=== PATIENT | female | born 1995 | race Caucasian/White ===

== ENCOUNTER 2017-07-01 18:38 | Emergency (ER) | payer BC ==
[~2017-07-01] VITALS: Ht 157.5 cm; Wt 49.0 kg
[~2017-07-01 18:38] MED LIST: INSU100I15
[2017-07-01 19:31] VITALS: Ht 157.5 cm; Wt 49.0 kg
[2017-07-01] MEDS ORDERED: SOD CHLORIDE 0.9% 2,000 ML IV STA (21:07)
[2017-07-01 21:21] VITALS: BP 138/89; PULSE 90; RESP 16
[2017-07-01 21:32] LABS: ADD UMIC NO; UR ASCORBIC ACID NEGATIVE (NEGATIVE); UR BILIRUBIN (Dip) NEGATIVE (NEGATIVE); UR BLOOD (Dip) NEGATIVE (NEGATIVE); UR CLARITY CLEAR (CLEAR); UR COLOR STRAW (YELLOW); UR GLUCOSE (Dip) 3+ mg/dL (NEGATIVE); UR KETONES (Dip) NEGATIVE (NEGATIVE); UR LEUKOCYTE ESTERASE (Dip) NEGATIVE Leu/ul (NEGATIVE); UR NITRITE (Dip) NEGATIVE (NEGATIVE); UR SPECIFIC GRAVITY (Dip) 1.021 (1.003-1.030); UR TOTAL PROTEIN (Dip) NEGATIVE (NEGATIVE); UR UROBILINOGEN (Dip) NEGATIVE (NEGATIVE)
[2017-07-01 21:34] LABS: BASOPHIL # 0.1 10^3/ul (0.0-0.1); BASOPHILS % 0.8 % (0.0-2.0); EOSINOPHILS # 0.5 10^3/ul (0.0-0.5); EOSINOPHILS % 4.2 % (0.0-7.0); HEMATOCRIT 38.1 % (37.0-47.0); HEMOGLOBIN 13.3 g/dl (12.0-16.0); LYMPHOCYTES # 2.9 10^3/ul (0.8-2.9); LYMPHOCYTES % 24.4 % (15.0-51.0); MEAN CORPUSCULAR HEMOGLOBIN 30.1 pg (29.0-33.0); MEAN CORPUSCULAR HGB CONC 34.9 g/dl (32.0-37.0); MEAN CORPUSCULAR VOLUME 86.2 fl (82.0-101.0); MEAN PLATELET VOLUME 9.3 fl (7.4-10.4); MONOCYTE # 0.8 10^3/ul (0.3-0.9); MONOCYTES % 6.9 % (0.0-11.0); NEUTROPHIL # 7.5 10^3/ul (1.6-7.5); NEUTROPHILS % 63.4 % (39.0-77.0); PLATELET COUNT 338 10^3/UL (140-415); RED BLOOD COUNT 4.42 10^6/ul (4.20-5.40); RED CELL DISTRIBUTION WIDTH 11.5 % (11.5-14.5); WHITE BLOOD COUNT 11.8 10^3/ul (4.8-10.8)
--- NOTE | 2017-07-01 21:55 | RADRPT ---
PROCEDURE: XR Chest. CLINICAL INDICATION: Shortness of breath. Hyperglycemia. TECHNIQUE: Single frontal view. COMPARISON: 09/19/2013. FINDINGS: The lungs are clear. The heart size is normal. There is no pleural effusion. There is no pneumothorax. IMPRESSION: 1. Normal chest radiograph. 2. No change from 09/19/2013. RPTAT: QQ .Santiago Cannon MD, MD Date Time Electronically viewed and signed by .Santiago Cannon MD, on 07/01/2017 21:54 .R/
[2017-07-01 22:06] LABS: CALCIUM 9.1 mg/dl (8.4-10.2); CREATININE 0.89 mg/dl (0.44-1.00); MAGNESIUM 1.8 mg/dl (1.7-2.5); PHOSPHORUS 4.4 mg/dl (2.5-4.9); POTASSIUM 4.1 mmol/L (3.5-5.1)
[2017-07-01] MEDS ORDERED: INSULIN LISPRO 100 UNIT/ML VIAL SC STA (22:12)
--- NOTE | 2017-07-01 22:31 | ERD ---
ER Documentation Chief Complaint Date/Time DATE: 07/01/17 TIME: 22:26 Chief Complaint RE=[id number] at PMD, diff seeing at [facility]; sent by PMD today HPI 21-year-old female history of insulin-dependent diabetes who presents with multiple complaints. The first is that the patient's glucose has been elevated. The patient describes that her blood sugars have been elevated over the last several days. She states compliance with medication. She does describe a mild cough and runny nose. She denies any fevers or chills dysuria urgency or frequency. She also describes some blurred vision to the right eye for at least 1 week. She denies any pain, no trauma, no fevers or chills. She has not seen an mobile paint specialist. ROS All systems reviewed and are negative except as per history of present illness. Medications Home Meds Reported Medications Insulin Glargine,Hum.rec.anlog (Lantus Solostar) 100 Units/Ml Pen, 0 Refills 07/11/13 Allergies Allergies: Coded Allergies: No Known Allergy (Unverified , 09/14/14) PMhx/Soc History of Surgery: No Anesthesia Reaction: No Hx Neurological Disorder: No Hx Respiratory Disorders: No Hx Cardiac Disorders: No Hx Psychiatric Problems: No Hx Miscellaneous Medical Probl: Yes (DM) Hx Alcohol Use: No Hx Substance Use: No Hx Tobacco Use: No Smoking Status: Never smoker FmHx Family History: diabetes Physical Exam Vitals Vital Signs Date Time Temp Pulse Resp B/P Pulse Ox O2 Delivery O2 Flow Rate FiO2 07/01/17 21:21 90 16 138/89 100 Room Air 07/01/17 19:31 98.7 103 20 159/85 97 Physical Exam General: Well developed, well nourished, no acute distress Head: Normocephalic, atraumatic. Eyes: Lids and lashes are normal without evidence of edema, pupils are equal and reactive, no proptosis, extraocular movements are intact without pain, no evidence of foreign body with lid eversion, no afferent pupillary defect, no field cuts, difficult to visualize fundus bilaterally Acuity: 20/50 to the left, unable to read on the right and 20/50 bilaterally. ENT: Dry mucous membranes Neck: Supple, no lymphadenopathy Respiratory: Lungs clear bilaterally, no distress Cardiovascular: RRR, no murmurs, rubs, or gallops Abdominal: Soft, non-tender, non-distended, no peritoneal signs : Deferred MSK: No edema, no unilateral swelling, 5/5 strength Neurologic: Alert and oriented, moving all extremities, normal speech, no focal weakness, no cerebellar signs Skin: No rash Psych: Normal mood Result Diagram: 07/01/17210007/01/172100 Results 24 hrs Laboratory Tests Test 07/01/17 20:56 07/01/17 21:00 07/01/17 21:01 Bedside Glucose 400mg/dL Urine Color STRAW Urine Clarity CLEAR Urine pH 7.0 Urine Specific [place]us 1.021 Urine Ketones NEGATIVEmg/dL Urine Nitrite NEGATIVEmg/dL Urine Bilirubin NEGATIVEmg/dL Urine Urobilinogen NEGATIVEmg/dL Urine Leukocyte Esterase NEGATIVELeu/ul Urine Hemoglobin NEGATIVEmg/dL Urine Glucose 3+mg/dL Urine Total Protein NEGATIVEmg/dl White Blood Count 11.810^3/ul Red Blood Count 4.4210^6/ul Hemoglobin 13.3g/dl Hematocrit 38.1% Mean Corpuscular Volume 86.2fl Mean Corpuscular Hemoglobin 30.1pg Mean Corpuscular Hemoglobin Concent 34.9g/dl Red Cell Distribution Width 11.5% Platelet Count 03260^3/UL Mean Platelet Volume 9.3fl Neutrophils % 63.4% Lymphocytes % 24.4% Monocytes % 6.9% Eosinophils % 4.2% Basophils % 0.8% Nucleated Red Blood Cells % 0.0/100WBC Neutrophils # 7.510^3/ul Lymphocytes # 2.910^3/ul Monocytes # 0.810^3/ul Eosinophils # 0.510^3/ul Basophils # 0.110^3/ul Nucleated Red Blood Cells # 0.010^3/ul Sodium Level 135mmol/L Potassium Level 4.1mmol/L Chloride Level 101mmol/L Carbon Dioxide Level 24mmol/L Anion Gap 14 Blood Urea Nitrogen 17mg/dl Creatinine 0.89mg/dl Glucose Level 458mg/dl Calcium Level 9.1mg/dl Phosphorus Level 4.4mg/dl Magnesium Level 1.8mg/dl Current Medications Medications (Trade) Dose Ordered Sig/Barbie Route PRN Reason Start Time Stop Time Status Last Admin Dose Admin Sodium Chloride (NS) 2,000 ml @ 1,000 mls/hr Q2H STAT IV 07/01/17 21:07 07/01/17 23:06 07/01/17 21:15 Insulin Human Lispro (Humalog) 5 unit ONCE STAT SC 07/01/17 22:12 07/01/17 22:16 DC Procedures/MDM EKG, MONITORS, & DIAGNOSTIC IMAGING: Chest x-ray: I reviewed and interpreted a 1 view of the chest Mediastinum: No enlargement Cardiac silhouette: No cardiomegaly Airspace: Clear lung agiular bilaterally without evidence of pneumothorax Bones: No evidence of fracture LAB INTERPRETATION: Hyperglycemia without evidence of diabetic ketoacidosis with normal anion gap, no ketonuria MEDICAL DECISION MAKING: The patient presents with hyperglycemia. She needs screening for diabetic ketoacidosis. Her laboratory testing does not show evidence of diabetic ketoacidosis. There is no anion gap, no ketonuria. The patient was given IV fluids and will be given subcutaneous Humalog. The patient is also describing decreased vision in the right eye for at least 1 week. On clinical exam the patient is able to see me without difficulty she is able to tell me how many fingers I am holding up and she has no field cuts. However her visual acuities are decreased. This is possibly secondary to vitreous hemorrhage secondary to her history of diabetes. The patient does not describe a curtain falling over her vision and has no absolute vision loss. Therefore this is unlikely to be secondary to retinal detachment. Given that the patient has had 1 week of symptoms that have been stable for 1 week I do believe the patient requires emergent transfer for an customer service receptionist. However , the patient absolutely needs prompt outpatient follow-up with an customer service receptionist. I will provide her with local clinics and [facility] referral information. ER COURSE: Patient was given 2 L of saline. She was given subcutaneous Humalog. She has no evidence of DKA and can be safely discharged with close outpatient follow- up. Her likely trigger for hyperglycemia is URI. It also appears that the patient's A1c is 12, therefore long-term control is poor in this patient. Close primary care follow-up is strongly recommended. I kept the patient and/or family informed of laboratory and diagnostic imaging results throughout the emergency room course. DISPOSITION PLAN: We discussed follow up with the patient's primary care doctor within 24 to 48 hours as needed. We also discussed return to the emergency room for worsening symptoms or worsening condition. Outpatient referral: Prompt ophthalmology follow-up Departure Diagnosis: Primary Impression: Hyperglycemia Additional Impressions: Vision changes Viral URI with cough Condition: Stable MARLO DENNISON MD Jul 01, 2017 22:31
[2017-07-01] MEDS ORDERED: INSU100I22 SC ×2 (23:33)
[2017-07-01] MEDS ORDERED: LANT3I SC (23:33)
== END 2017-07-01 23:24 | disposition home or self-care (01) ==
LOC: E/R 18:38
DX: E11.65 Type 2 diabetes mellitus with hyperglycemia (principal); J06.9 Acute upper respiratory infection, unspecified; R06.02 Shortness of breath; Z79.4 Long term (current) use of insulin
CPT/HCPCS: 36415; 71010; 80048; 81003; 82962; 83735; 84100; 85025; 96372; J1815; J7030; Z7502

== ENCOUNTER 2017-07-15 00:20 | Emergency (ER) | payer SELFPAY ==
[~2017-07-15] VITALS: Ht 170.2 cm; Wt 49.0 kg
[~2017-07-15 00:20] MED LIST changes: -INSU100I15; +INSU100I22 SC; +LANT3I SC
[2017-07-15 00:25] VITALS: Ht 170.2 cm; Wt 49.0 kg
== END 2017-07-15 00:43 | disposition left against medical advice (07) ==
LOC: E/R 00:20
DX: Z53.21 Procedure and treatment not carried out due to patient leaving prior to being seen by health care provider (principal)

== ENCOUNTER 2018-03-27 11:42 | Emergency (ER) | END 2018-03-27 15:07 | disposition home or self-care (01) ==

== ENCOUNTER → 2018-04-03 | Emergency (ER) | END | disposition home or self-care (01) ==

== ENCOUNTER 2018-04-09 13:07 | Inpatient (IN) | END 2018-04-12 16:54 | disposition home or self-care (01) | DRG 871 ==

== ENCOUNTER 2019-04-14 02:01 | Inpatient (IN) | payer BC ==
[~2019-04-14] VITALS: Ht 152.4 cm; Wt 45.9 kg
[~2019-04-14 02:01] MED LIST changes: -INSU100I22 SC; +Insulin Glargine SC; +LACTINEX PO; -LANT3I SC; +LEVO500T10 PO; +METR500T PO; +NOVO3I SC
[2019-04-14 02:35] VITALS: BP 126/64; PULSE 100; RESP 20
[2019-04-14 02:53] VITALS: Ht 152.4 cm; Wt 45.9 kg
[2019-04-14] MEDS ORDERED: SOD CHLORIDE 0.9% 1,000 ML IV SCH (03:14)
--- NOTE | 2019-04-14 03:20 | HP ---
Date/Time of Note Date/Time of Note DATE: 04/14/19 TIME: 03:20 Assessment/Plan VTE Prophylaxis SCD applied (from Nsg): Yes Pharmacological prophylaxis: NA/contraindicated Pharm contraindication: low risk/ambulating Assessment/Plan Hospital Course This is a 23-year-old female being admitted to the [facility] floor for: #1 pyelonephritis: My fluid hydration with normal saline, Levaquin 750 mg every 24 hours x5 days. Will need to obtain culture results from the transferring [facility]. I will order urinalysis and urine culture results here as well though patient is already on antibiotics. #2 diabetes mellitus type 1: We will resume home insulin, insulin sliding scale check hemoglobin A1c #3 DVT GI prophylaxis: SCDs, no GI prophylaxis indicated Further treatment strategy will be implemented as per the clinical course. HPI/ROS Admit Date/Time Admit Date/Time Apr 14, 2019 at 02:15 Hx of Present Illness Chief complaint: Abdominal pain x1 day This is a 23-year-old female with past medical history of diabetes mellitus who presented to [facility] with complaints of tactile fevers and abdominal pain that started approximately 10 AM on 04/13/2019. Patient reported that the pain was squeezing and was moving around her abdomen. She also reported nausea and vomiting. She did reports that she has sexual intercourse earlier in the morning and had pain after urination. Patient was noted to have a temperature of 99 F at the transferring facility. Her laboratory values were significant for white blood cell count of 25.6 potassium 3.4 creatinine 1.0 urinalysis positive for leukoesterase and nitrite. He was given ceftriaxone in the emergency department. CT findings by the telemetry radiologist showed heterogeneous enhancement of the left renal cortex with perinephric stranding and a urothelial enhancement, which can be seen with pyelonephritis. She was subsequently transferred to [facility] secondary to insurance purposes. Upon my examination of the patient at the bedside she does not report any pain. She does report improvement in her symptoms. She reports that she is only sexually active with one partner Allergies: NKDA Medications: See NOV FRANCO Const: As per HPI Eyes : No pain discharge or redness or change in visual acuity ENT: No pain, sore throat, congestion, congestion, dysphagia or discharge Respiratory: No shortness of breath, cough, sputum, wheezing, or pleuritic pain Cardiovascular: No chest pain, palpitation, PND, or edema GI : no change in appetite, abdominal pain, nausea, vomiting, diarrhea, constipation, or change in the color his stool Genitourinary: As per HPI Musculoskeletal: No joint pain, back pain, neck pain, restricted range of motion in neck or joints Skin: No rash, bruising or hives Neuro: No headache, dizziness, syncope, seizure, focal weakness Endocrine: No polyuria, polydipsia, temperature intolerance Psych: No hallucination, depression, anxiety or suicidal ideation PMH/Family/Social Past Medical History Diabetes mellitus, pyelonephritis Coded Allergies: No Known Allergy (Unverified , 04/11/18) Past Surgical History Past Surgical Hx: no surgical history Family History Significant Family History: no pertinent family hx Social History Alcohol Use: none Smoking Status: Never smoker Drug Use: none Exam/Review of Systems Vital Signs Vitals Vital Signs Date Temp Pulse Resp B/P (MAP) Pulse Ox O2 O2 Flow FiO2 Time Delivery Rate 04/14/19 98.5 100 20 126/64 99 Room Air 02:35 (84) Exam Exam General: Patient is a pleasant female currently lying in bed in no acute distre ss. HEENT: Atraumatic, normocephalic. The pupils are equal, round and reactive. Extraocular motor are intact Neck: Supple with full range of motion. No rigidity or meningismus Chest: Nontender Lungs: Clear to auscultation bilaterally no crackles rales or wheezing Heart: Normal S1-S2, Regular rhythm and rate. No murmur, S3, or S4 Abdomen: Soft , nontender, nondistended , bowel sounds are present. No guarding no rebound tenderness , No masses or organomegaly. No CVA tenderness palpation bilaterally Extremities: Normal to inspection, no edema no cyanosis Neurologic: Normal mental status, speech normal, cranial nerves II through XII a re intact, motor and sensory are intact, no focal weakness ARNAUD FOWLER Apr 14, 2019 03:20
[2019-04-14] MEDS ORDERED: BISACODYL (EC) 5 MG TAB PO PRN (03:30)
[2019-04-14] MEDS ORDERED: ACETAMINOPHEN 325 MG TAB PO PRN (03:30)
[2019-04-14] MEDS ORDERED: NACL 0.9% 3 ML SYG IV SCH (03:30)
[2019-04-14] MEDS ORDERED: ONDANSETRON 4 MG INJ IV PRN (03:30)
[2019-04-14] MEDS ORDERED: DOCUSATE SODIUM 100 MG CAP PO PRN (03:30)
[2019-04-14] MEDS: HYDROmorphONE 0.5 MG/0.5 ML SYG IV PRN ×2 (03:52→07:59)
[2019-04-14] MEDS ORDERED: DEXTROSE 50% 50 ML SYRINGE IV PRN ×2 (04:00)
[2019-04-14] MEDS ORDERED: GLUCAGON 1 MG INJ IM PRN (04:00)
[2019-04-14] MEDS ORDERED: GLUCOSE GEL 15 GRAM TUBE BUCCAL PRN (04:00)
[2019-04-14] MEDS ORDERED: GLUCOSE GEL 15 GRAM TUBE PO PRN ×2 (04:00)
[2019-04-14] MEDS: LEVOFLOXACIN 750MG/D5W (PMX) 150 ML IVPB SCH (05:08)
[2019-04-14] MEDS: HEPARIN 5,000 UNIT/1 ML VIAL SC SCH ×3 (05:10→20:51)
[2019-04-14 08:07] VITALS: BP 122/73; PULSE 91; RESP 18
[2019-04-14] MEDS: INSULIN ASPART [NOVOLOG] 3 ML PEN SC SCH ×9 (08:40→21:00)
[2019-04-14] MEDS: LACTOBACILLUS RHAMNOSUS CAP PO SCH ×2 (08:42→20:51)
--- NOTE | 2019-04-14 11:03 | PN ---
Date/Time of Note Date/Time of Note DATE: 04/14/19 TIME: 11:00 Assessment/Plan VTE Prophylaxis Risk score (from Nsg)>0 risk: 0 SCD applied (from Nsg): Yes Pharmacological prophylaxis: NA/contraindicated Pharm contraindication: low risk/ambulating Lines/Catheters IV Catheter Type (from Nrsg): Peripheral IV Assessment/Plan Assessment/Plan This is a 23-year-old woman with history of type I diabetes admitted with acute pyelonephritis. #1 pyelonephritis: My fluid hydration with normal saline, Levaquin 750 mg every 24 hours x5 days. Will need to obtain culture results from the transferring [facility]. Opioid analgesics for pain control. #2 diabetes mellitus type 1: We will resume home insulin, insulin sliding scale check hemoglobin A1c #3 DVT GI prophylaxis: SCDs, no GI prophylaxis indicated Result Diagram: 04/14/1933204/14/19332 Subjective 24 Hr Interval Summary Free Text/Dictation No acute overnight events. Still in considerable pain. Dry cough and deep inspiration causes L flank pain. Sister at bedside translating for [place]. Exam/Review of Systems Exam Vitals Vital Signs Date Temp Pulse Resp B/P (MAP) Pulse Ox O2 O2 Flow FiO2 Time Delivery Rate 04/14/19 98.2 91 18 122/73 98 Room Air 08:07 (89) Intake and Output 04/13/19 04/13/19 04/14/19 1515:00 23:00 07:00 IntakeIntake Total 350 ml BalanceBalance 350 ml Exam General: Patient is a young woman currently lying in bed in no acute distress. HEENT: Atraumatic, normocephalic. The pupils are equal, round and reactive. Extraocular motor are intact Neck: Supple with full range of motion. No rigidity or meningismus Chest: Nontender Lungs: Clear to auscultation bilaterally no crackles rales or wheezing Heart: Normal S1-S2, Regular rhythm and rate. No murmur, S3, or S4 Abdomen: L>R CVA tenderness to palpation. Diffuse abdominal tenderness, most in the upper quadrants. Normoactive bowel sounds. Soft, nondistended. Extremities: Normal to inspection, no edema no cyanosis Results Results 24hrs Laboratory Tests Test 04/14/19 03:33 04/14/19 08:36 White Blood Count 19.3 #H Red Blood Count 4.49 Hemoglobin 12.8 Hematocrit 38.4 Mean Corpuscular Volume 85.5 Mean Corpuscular Hemoglobin 28.5 L Mean Corpuscular Hemoglobin Concent 33.3 Red Cell Distribution Width 12.0 Platelet Count 327 Mean Platelet Volume 9.1 Immature Granulocytes % 0.600 H Neutrophils % 83.7 H Lymphocytes % 7.9 L Monocytes % 7.3 Eosinophils % 0.1 Basophils % 0.4 Nucleated Red Blood Cells % 0.0 Immature Granulocytes # 0.110 H Neutrophils # 16.1 H Lymphocytes # 1.5 Monocytes # 1.4 H Eosinophils # 0.0 Basophils # 0.1 Nucleated Red Blood Cells # 0.0 Sodium Level 140 Potassium Level 4.1 Chloride Level 107 Carbon Dioxide Level 22 Anion Gap 11 Blood Urea Nitrogen 10 Creatinine 0.95 Est Glomerular Filtrat Rate mL/min > 60 Glucose Level 315 H Hemoglobin A1c 9.7 H Calcium Level 8.9 Magnesium Level 1.6 L Total Bilirubin 0.7 Direct Bilirubin 0.00 Indirect Bilirubin 0.7 Aspartate Amino Transf (AST/SGOT) 16 Alanine Aminotransferase (ALT/SGPT) 17 Alkaline Phosphatase 95 Total Protein 7.0 Albumin 3.9 Globulin 3.10 Albumin/Globulin Ratio 1.25 Triglycerides Level 48 Cholesterol Level 142 LDL Cholesterol, Calculated 74 HDL Cholesterol 58 Cholesterol/HDL Ratio 2.4 Thyroid Stimulating Hormone (TSH) 0.699 Bedside Glucose 376 H Medications Medication Current Medications IV Flush (NS 3 ml) 3 ml PER PROTOCOL IV Last administered on 04/14/19at 03:47; Admin Dose 3 ML; Start 04/14/19 at 03:30 Ondansetron HCl (Zofran Inj) 4 mg Q6H PRN IV NAUSEA/VOMITING Last administered on 04/14/19at 03:49; Admin Dose 4 MG; Start 04/14/19 at 03:30 Acetaminophen (Tylenol Tab) 650 mg Q6H PRN PO .PAIN 1-3 OR TEMP; Start 04/14/19 at 03:30 Docusate Sodium (Colace) 100 mg Q12H PRN PO .CONSTIPATION; Start 04/14/19 at 03:30 Bisacodyl (Dulcolax) 5 mg DAILY PRN PO .CONSTIPATION; Start 04/14/19 at 03:30 Heparin Sodium (Porcine) (Heparin (5000 Units/1ml)) 5,000 unit Q8 SC Last administered on 04/14/19at 05:10; Admin Dose 5,000 UNIT; Start 04/14/19 at 06:00 Insulin Aspart (Novolog Insulin Pen) 7 unit WITH MEALS SC Last administered on 04/14/19at 08:40; Admin Dose 7 UNIT; Start 04/14/19 at 07:50 Lactobacillus Acidophilus/ Rhamnosus (Culturelle) 1 cap BID PO Last administe red on 04/14/19at 08:42; Admin Dose 1 CAP; Start 04/14/19 at 09:00 Diagnostic Test (Pha) (Accu-Chek) 1 ea 02 XX ; Start 04/15/19 at 02:00 Insulin Aspart (Novolog Insulin Pen) NOVOLOG *MILD* ALGORITHM WITH MEALS BEDTIME SC Last administered on 04/14/19at 08:41; Admin Dose 7 UNIT; Start 04/14/19 at 07:50 Levofloxacin/ Dextrose 150 ml @ 100 mls/hr Q24H IVPB Last administered on 04/14/19at 05:08; Admin Dose 100 MLS/HR; Start 04/14/19 at 03:30 Insulin Glargine (Lantus) 15 units DAILY@2000 SC ; Start 04/14/19 at 20:00 Miscellaneous Information 1 ea NOTE XX ; Start 04/14/19 at 04:00 Glucose (Glutose) 15 gm Q15M PRN PO DECREASED GLUCOSE; Start 04/14/19 at 04:00 Glucose (Glutose) 22.5 gm Q15M PRN PO DECREASED GLUCOSE; Start 04/14/19 at 04:00 Dextrose (D50w Syringe) 25 ml Q15M PRN IV DECREASED GLUCOSE; Start 04/14/19 at 04:00 Dextrose (D50w Syringe) 50 ml Q15M PRN IV DECREASED GLUCOSE; Start 04/14/19 at 04:00 Glucagon (Glucagen) 1 mg Q15M PRN IM DECREASED GLUCOSE; Start 04/14/19 at 04:00 Glucose (Glutose) 15 gm Q15M PRN BUCCAL DECREASED GLUCOSE; Start 04/14/19 at 04:00 Acetaminophen/ Hydrocodone Bitart ([place] (5/325)) 1 tab Q4H PRN PO MODERATE PAIN LEVEL 4-6; Start 04/14/19 at 11:00; Status UNV Hydromorphone HCl (Dilaudid) 1 mg Q3H PRN IV BREAKTHROUGH PAIN; Start 04/14/19 at 11:00; Status UNV PATRICIA SHERWOOD MD Apr 14, 2019 11:03
[2019-04-14] MEDS: HYDROCODONE/APAP (5/325) TAB PO PRN ×2 (11:14→18:52)
[2019-04-14 14:00] VITALS: BP 120/73; PULSE 88; RESP 18
[2019-04-14] MEDS: HYDROmorphONE 1 MG/ML SYG IV PRN (14:37)
[2019-04-14 19:55] VITALS: BP 135/82; PULSE 109; RESP 18
[2019-04-14] MEDS ORDERED: INSULIN GLARGINE 15 UNIT SC SCH (20:00)
[2019-04-14] MEDS ORDERED: INSULIN GLARGINE [LANTus] (100 UNITS/ML) SYG SC SCH (20:00)
[2019-04-15] MEDS: ACCU-CHEK XX SCH (02:00)
[2019-04-15 02:23] VITALS: BP 118/62; PULSE 98; RESP 18
[2019-04-15] MEDS: LEVOFLOXACIN 750MG/D5W (PMX) 150 ML IVPB SCH (03:15)
[2019-04-15] MEDS ORDERED: INSULIN ASPART [NOVOLOG] 3 ML PEN SC ONE ×2 (04:00→07:00)
[2019-04-15] MEDS ORDERED: ACCU-CHEK XX ONE ×2 (04:00→07:00)
[2019-04-15] MEDS: HYDROmorphONE 1 MG/ML SYG IV PRN ×2 (04:13→11:30)
[2019-04-15] MEDS: ONDANSETRON 4 MG INJ IV PRN ×2 (04:13→10:03)
[2019-04-15] MEDS: HEPARIN 5,000 UNIT/1 ML VIAL SC SCH ×3 (06:27→22:56)
[2019-04-15 07:26] VITALS: BP 112/75; PULSE 91; RESP 18
[2019-04-15] MEDS: INSULIN ASPART [NOVOLOG] 3 ML PEN SC SCH ×7 (09:46→20:58)
[2019-04-15] MEDS: LACTOBACILLUS RHAMNOSUS CAP PO SCH ×2 (09:49→20:50)
[2019-04-15] MEDS ORDERED: INSULIN GLARGINE [LANTus] (100 UNITS/ML) SYG SC SCH (10:00)
--- NOTE | 2019-04-15 10:05 | PN ---
Date/Time of Note Date/Time of Note DATE: 04/15/19 TIME: 10:01 Assessment/Plan VTE Prophylaxis Risk score (from Nsg)>0 risk: 0 SCD applied (from Nsg): Yes Pharmacological prophylaxis: NA/contraindicated Pharm contraindication: low risk/ambulating Lines/Catheters IV Catheter Type (from Nrsg): Peripheral IV Urinary Cath still in place: No Assessment/Plan Assessment/Plan This is a 23-year-old woman with history of type I diabetes admitted with acute pyelonephritis. #1 pyelonephritis: - fluid hydration with normal saline, - Levaquin 750 mg every 24 hours. - Opioid analgesics for pain control. - Urine culture growing E Coli, sensitivity pending. Blood cultures NGTD. Micro lab at [facility] [phone] - Will add on ceftriaxone. Possible partial resistance to levofloxacin. #2 diabetes mellitus type 1: - Persistently hyperglycemic. - Titrating up long-acting and short-acting insulin. #3 DVT GI prophylaxis: SCDs, no GI prophylaxis indicated Result Diagram: 04/15/19 0402 04/15/19 0402 Subjective 24 Hr Interval Summary Free Text/Dictation Overnight, patient having nausea and vomiting. Pain is not significantly improved. Exam/Review of Systems Exam Vitals Vital Signs Date Temp Pulse Resp B/P (MAP) Pulse Ox O2 O2 Flow FiO2 Time Delivery Rate 04/15/19 98.8 91 18 112/75 99 Room Air 07:26 (87) Intake and Output 04/14/19 04/14/19 04/15/19 1515:00 23:00 07:00 IntakeIntake Total 800 ml 200 ml 150 ml BalanceBalance 800 ml 200 ml 150 ml Exam General: Patient is a young woman currently lying in bed in no acute distress. HEENT: Atraumatic, normocephalic. The pupils are equal, round and reactive. Extraocular motor are intact Neck: Supple with full range of motion. No rigidity or meningismus Chest: Nontender Lungs: Clear to auscultation bilaterally no crackles rales or wheezing Heart: Normal S1-S2, Regular rhythm and rate. No murmur, S3, or S4 Abdomen: L>R CVA tenderness to palpation. Diffuse abdominal tenderness, most in the upper quadrants. Normoactive bowel sounds. Soft, nondistended. Extremities: Normal to inspection, no edema no cyanosis Results Results 24hrs Laboratory Tests Test 04/14/19 11:10 04/14/19 12:45 04/14/19 17:22 04/14/19 20:47 Urine Color STRAW Urine Clarity SLIGHTLY CLOUDY A Urine pH 7.0 Urine Specific 1.011 Kathleen Urine Ketones 1+ H Urine Nitrite NEGATIVE Urine Bilirubin NEGATIVE Urine NEGATIVE Urobilinogen Urine Leukocyte 1+ H Esterase Urine Microscopic 1 RBC Urine Microscopic 36 H WBC Urine Squamous FEW Epithelial Cells Urine Hemoglobin 1+ H Urine Glucose 3+ H Urine Total NEGATIVE Protein Bedside Glucose 239 H 387 H 161 Test 04/15/19 03:37 04/15/19 04:02 04/15/19 04:11 04/15/19 04:50 Bedside Glucose 404 *H 410 *H 399 H White Blood Count 16.7 H Red Blood Count 4.34 Hemoglobin 12.4 Hematocrit 37.4 Mean Corpuscular 86.2 Volume Mean Corpuscular 28.6 L Hemoglobin Mean Corpuscular 33.2 Hemoglobin Concen t Red Cell 11.8 Distribution Width Platelet Count 336 Mean Platelet 8.8 Volume Immature 0.700 H Granulocytes % Neutrophils % 79.1 H Lymphocytes % 13.3 L Monocytes % 5.7 Eosinophils % 0.7 Basophils % 0.5 Nucleated Red 0.0 Blood Cells % Immature 0.110 H Granulocytes # Neutrophils # 13.2 H Lymphocytes # 2.2 Monocytes # 1.0 H Eosinophils # 0.1 Basophils # 0.1 Nucleated Red 0.0 Blood Cells # Sodium Level 136 Potassium Level 4.6 Chloride Level 102 Carbon Dioxide 16 L Level Anion Gap 18 #H Blood Urea 16 Nitrogen Creatinine 1.11 H Est Glomerular > 60 Filtrat Rate mL/min Glucose Level 475 #*H Calcium Level 9.5 Magnesium Level 1.8 Total Bilirubin 0.5 Direct Bilirubin 0.00 Indirect 0.5 Bilirubin Aspartate Amino 14 L Transf (AST/SGOT) Alanine 11 L Aminotransferase (ALT/SGPT) Alkaline 109 Phosphatase Total Protein 7.1 Albumin 3.9 Globulin 3.20 Albumin/Globulin 1.21 Ratio Test 04/15/19 06:21 04/15/19 07:24 04/15/19 09:40 Bedside Glucose 313 H 312 H 206 Medications Medication Current Medications IV Flush (NS 3 ml) 3 ml PER PROTOCOL IV Last administered on 04/14/19at 03:47; Admin Dose 3 ML; Start 04/14/19 at 03:30 Acetaminophen (Tylenol Tab) 650 mg Q6H PRN PO .PAIN 1-3 OR TEMP; Start 04/14/19 at 03:30 Docusate Sodium (Colace) 100 mg Q12H PRN PO .CONSTIPATION; Start 04/14/19 at 03:30 Bisacodyl (Dulcolax) 5 mg DAILY PRN PO .CONSTIPATION; Start 04/14/19 at 03:30 Heparin Sodium (Porcine) (Heparin (5000 Units/1ml)) 5,000 unit Q8 SC Last adm inistered on 04/15/19at 06:27; Admin Dose 5,000 UNIT; Start 04/14/19 at 06:00 Lactobacillus Acidophilus/ Rhamnosus (Culturelle) 1 cap BID PO Last administered on 04/15/19at 09:49; Admin Dose 1 CAP; Start 04/14/19 at 09:00 Diagnostic Test (Pha) (Accu-Chek) 1 ea 02 XX ; Start 04/15/19 at 02:00 Levofloxacin/ Dextrose 150 ml @ 100 mls/hr Q24H IVPB Last administered on 04/15/19at 03:15; Admin Dose 100 MLS/HR; Start 04/14/19 at 03:30 Miscellaneous Information 1 ea NOTE XX ; Start 04/14/19 at 04:00 Glucose (Glutose) 15 gm Q15M PRN PO DECREASED GLUCOSE; Start 04/14/19 at 04:00 Glucose (Glutose) 22.5 gm Q15M PRN PO DECREASED GLUCOSE; Start 04/14/19 at 04:00 Dextrose (D50w Syringe) 25 ml Q15M PRN IV DECREASED GLUCOSE; Start 04/14/19 at 04:00 Dextrose (D50w Syringe) 50 ml Q15M PRN IV DECREASED GLUCOSE; Start 04/14/19 at 04:00 Glucagon (Glucagen) 1 mg Q15M PRN IM DECREASED GLUCOSE; Start 04/14/19 at 04:00 Glucose (Glutose) 15 gm Q15M PRN BUCCAL DECREASED GLUCOSE; Start 04/14/19 at 04:00 Acetaminophen/ Hydrocodone Bitart ([place] (5/325)) 1 tab Q4H PRN PO MODERATE PAIN LEVEL 4-6 Last administered on 04/14/19at 18:52; Admin Dose 1 TAB; Start 04/14/19 at 11:00 Hydromorphone HCl (Dilaudid) 1 mg Q3H PRN IV BREAKTHROUGH PAIN Last administered on 04/15/19 04:13; Admin Dose 1 MG; Start 04/14/19 at 11:00 Insulin Aspart (Novolog Insulin Pen) NOVOLOG *MODERATE* ALGORITHM WITH MEALS BEDTIME SC Last administered on 04/15/19 09:46; Admin Dose 4 UNIT; Start 04/14/19 at 17:55 Insulin Aspart (Novolog Insulin Pen) 10 unit WITH MEALS SC Last administered on 04/15/19 09:47; Admin Dose 5 UNIT; Start 04/14/19 at 17:55 Ondansetron HCl (Zofran Inj) 4 mg Q4H PRN IV NAUSEA AND/OR VOMITING Last ad ministered on 04/15/19at 04:13; Admin Dose 4 MG; Start 04/15/19 at 04:30 Insulin Glargine (Lantus) 15 units BID SC ; Start 04/15/19 at 10:00 PATRICIA SHERWOOD MD Apr 15, 2019 10:05
[2019-04-15] MEDS: SOD CHLORIDE 0.9% 1,000 ML IV SCH ×2 (11:11→16:54)
[2019-04-15] MEDS: CEFTRIAXONE 1 GM/50 ML (PMX) 50 ML IVPB SCH (11:11)
[2019-04-15 16:13] VITALS: BP 119/83; PULSE 92; RESP 14
[2019-04-15] MEDS: HYDROCODONE/APAP (5/325) TAB PO PRN (16:54)
[2019-04-15] MEDS ORDERED: KETOROLAC 30 MG INJ IV STA (18:56)
[2019-04-15 19:40] VITALS: BP 130/82; PULSE 95; RESP 20
[2019-04-16] MEDS: ACCU-CHEK XX SCH (02:00)
[2019-04-16 02:25] VITALS: BP 106/71; PULSE 71; RESP 18
[2019-04-16] MEDS: LEVOFLOXACIN 750MG/D5W (PMX) 150 ML IVPB SCH (03:29)
[2019-04-16] MEDS: SOD CHLORIDE 0.9% 1,000 ML IV SCH ×2 (03:30→17:40)
[2019-04-16] MEDS: HEPARIN 5,000 UNIT/1 ML VIAL SC SCH ×3 (06:03→20:34)
[2019-04-16 07:44] VITALS: BP 127/75; PULSE 74; RESP 18
[2019-04-16] MEDS: INSULIN ASPART [NOVOLOG] 3 ML PEN SC SCH ×7 (08:40→21:00)
[2019-04-16] MEDS: LACTOBACILLUS RHAMNOSUS CAP PO SCH ×2 (08:42→20:32)
[2019-04-16] MEDS: CEFTRIAXONE 1 GM/50 ML (PMX) 50 ML IVPB SCH (09:40)
[2019-04-16] MEDS: INSULIN GLARGINE [LANTus] (100 UNITS/ML) SYG SC SCH ×2 (09:40→21:00)
--- NOTE | 2019-04-16 10:24 | PN ---
Date/Time of Note Date/Time of Note DATE: 04/16/19 TIME: 10:22 Assessment/Plan VTE Prophylaxis Risk score (from Nsg)>0 risk: 1 SCD applied (from Nsg): Yes Pharmacological prophylaxis: NA/contraindicated Pharm contraindication: low risk/ambulating Lines/Catheters IV Catheter Type (from Nrsg): Peripheral IV Urinary Cath still in place: No Assessment/Plan Assessment/Plan This is a 23-year-old woman with history of type I diabetes admitted with acute pyelonephritis. #1 pyelonephritis: - fluid hydration with normal saline, - Levaquin 750 mg every 24 hours. - Opioid analgesics for pain control. - Urine culture growing E Coli, sensitive to nitrofurantoin, ciprofloxacin, Bactrim. Blood cultures NGTD. Micro lab at [place] is [phone] - Plan for discharge to finish a course of levofloxacin. #2 diabetes mellitus type 1: - Titrating up long-acting and short-acting insulin. #3 DVT GI prophylaxis: SCDs, no GI prophylaxis indicated Result Diagram: 04/16/19 04304/16/19 043 Subjective 24 Hr Interval Summary Free Text/Dictation No acute overnight events. Nausea and vomiting have resolved. Still mild LUQ abdominal pain. Patient ambulating out in hallway. Mild dizziness when standing. Offered discharge today, patient is still apprehensive and would prefer to stay one more day. Exam/Review of Systems Exam Vitals Vital Signs Date Temp Pulse Resp B/P (MAP) Pulse Ox O2 O2 Flow FiO2 Time Delivery Rate 04/16/19 97.9 74 18 127/75 97 Room Air 07:44 (92) Intake and Output 04/15/19 04/15/19 04/16/19 1515:00 23:00 07:00 IntakeIntake Total 50 ml 2100 ml 1300 ml OutputOutput Total 350 ml BalanceBalance -300 ml 2100 ml 1300 ml Exam General: Patient is a young woman currently lying in bed in no acute distress. HEENT: Atraumatic, normocephalic. The pupils are equal, round and reactive. Extraocular motor are intact Neck: Supple with full range of motion. No rigidity or meningismus Chest: Nontender Lungs: Clear to auscultation bilaterally no crackles rales or wheezing Heart: Normal S1-S2, Regular rhythm and rate. No murmur, S3, or S4 Abdomen: Mild LUQ abdominal tenderness. Normoactive bowel sounds. Soft, nondistended. Extremities: Normal to inspection, no edema no cyanosis Results Results 24hrs Laboratory Tests Test 04/15/19 12:54 04/15/19 13:20 04/15/19 13:59 04/15/19 17:27 Bedside Glucose 52 L 93 156 143 Test 04/15/19 20:22 04/15/19 20:40 04/15/19 20:55 04/16/19 02:09 Bedside Glucose 53 L 85 185 Glucose Level 107 # Test 04/16/19 04:31 04/16/19 08:34 White Blood Count 8.9 # Red Blood Count 3.97 L Hemoglobin 11.2 L Hematocrit 34.5 L Mean Corpuscular 86.9 Volume Mean Corpuscular 28.2 L Hemoglobin Mean Corpuscular 32.5 Hemoglobin Concent Red Cell 11.9 Distribution Width Platelet Count 321 Mean Platelet Volume 9.3 Immature 0.700 H Granulocytes % Neutrophils % 53.5 Lymphocytes % 33.1 Monocytes % 9.6 Eosinophils % 2.6 Basophils % 0.5 Nucleated Red Blood 0.0 Cells % Immature 0.060 H Granulocytes # Neutrophils # 4.8 Lymphocytes # 2.9 Monocytes # 0.9 Eosinophils # 0.2 Basophils # 0.0 Nucleated Red Blood 0.0 Cells # Sodium Level 137 Potassium Level 4.2 Chloride Level 108 Carbon Dioxide Level 20 L Anion Gap 9 # Blood Urea Nitrogen 15 Creatinine 1.01 H Est Glomerular > 60 Filtrat Rate mL/min Glucose Level 283 #H Calcium Level 8.7 Total Bilirubin 0.3 Direct Bilirubin 0.00 Indirect Bilirubin 0.3 Aspartate Amino 15 Transf (AST/SGOT) Alanine 16 Aminotransferase (AL T/SGPT) Alkaline Phosphatase 87 Total Protein 6.7 Albumin 3.2 L Globulin 3.50 H Albumin/Globulin 0.91 Ratio Bedside Glucose 365 H Medications Medication Current Medications IV Flush (NS 3 ml) 3 ml PER PROTOCOL IV Last administered on 04/14/19at 03:47; Admin Dose 3 ML; Start 04/14/19 at 03:30 Acetaminophen (Tylenol Tab) 650 mg Q6H PRN PO .PAIN 1-3 OR TEMP; Start 04/14/19 at 03:30 Docusate Sodium (Colace) 100 mg Q12H PRN PO .CONSTIPATION; Start 04/14/19 at 03:30 Bisacodyl (Dulcolax) 5 mg DAILY PRN PO .CONSTIPATION; Start 04/14/19 at 03:30 Heparin Sodium (Porcine) (Heparin (5000 Units/1ml)) 5,000 unit Q8 SC Last administered on 04/16/19at 06:03; Admin Dose 5,000 UNIT; Start 04/14/19 at 06:00 Lactobacillus Acidophilus/ Rhamnosus (Culturelle) 1 cap BID PO Last administered on 04/16/19at 08:42; Admin Dose 1 CAP; Start 04/14/19 at 09:00 Diagnostic Test (Pha) (Accu-Chek) 1 ea 02 XX ; Start 04/15/19 at 02:00 Levofloxacin/ Dextrose 150 ml @ 100 mls/hr Q24H IVPB Last administered on 04/16/19at 03:29; Admin Dose 100 MLS/HR; Start 04/14/19 at 03:30 Miscellaneous Information 1 ea NOTE XX ; Start 04/14/19 at 04:00 Glucose (Glutose) 15 gm Q15M PRN PO DECREASED GLUCOSE; Start 04/14/19 at 04:00 Glucose (Glutose) 22.5 gm Q15M PRN PO DECREASED GLUCOSE; Start 04/14/19 at 04:00 Dextrose (D50w Syringe) 25 ml Q15M PRN IV DECREASED GLUCOSE; Start 04/14/19 at 04:00 Dextrose (D50w Syringe) 50 ml Q15M PRN IV DECREASED GLUCOSE; Start 04/14/19 at 04:00 Glucagon (Glucagen) 1 mg Q15M PRN IM DECREASED GLUCOSE; Start 04/14/19 at 04:00 Glucose (Glutose) 15 gm Q15M PRN BUCCAL DECREASED GLUCOSE; Start 04/14/19 at 04 :00 Acetaminophen/ Hydrocodone Bitart ([place] (5/325)) 1 tab Q4H PRN PO MODERATE PAIN LEVEL 4-6 Last administered on 04/15/19at 16:54; Admin Dose 1 TAB; Start 04/14/19 at 11:00 Hydromorphone HCl (Dilaudid) 1 mg Q3H PRN IV BREAKTHROUGH PAIN Last administered on 04/15/19at 11:30; Admin Dose 1 MG; Start 04/14/19 at 11:00 Insulin Aspart (Novolog Insulin Pen) NOVOLOG *MODERATE* ALGORITHM WITH MEALS BEDTIME SC Last administered on 04/16/19 08:40; Admin Dose 12 UNIT; Start 04/14/19 at 17:55 Ondansetron HCl (Zofran Inj) 4 mg Q4H PRN IV NAUSEA AND/OR VOMITING Last administered on 04/15/19 10:03; Admin Dose 4 MG; Start 04/15/19 at 04:30 Sodium Chloride 1,000 ml @ 100 mls/hr Q10H IV Last administered on 04/16/19 03:30; Admin Dose 100 MLS/HR; Start 04/15/19 at 10:00 Ceftriaxone Sodium 50 ml @ 100 mls/hr Q24H IVPB Last administered on 04/16/19 09:40; Admin Dose 100 MLS/HR; Start 04/15/19 at 10:30 Insulin Aspart (Novolog Insulin Pen) 6 unit WITH MEALS SC Last administered on 04/16/19 08:41; Admin Dose 6 UNIT; Start 04/16/19 at 11:40 Insulin Glargine (Lantus) 10 units BID SC Last administered on 04/16/19 09:40; Admin Dose 10 UNITS; Start 04/16/19 at 09:00 PATRICIA SHERWOOD MD Apr 16, 2019 10:24
[2019-04-16 16:05] VITALS: BP 119/72; PULSE 77; RESP 18
[2019-04-16 19:45] VITALS: BP 128/77; PULSE 90; RESP 20
[2019-04-17] MEDS: HYDROCODONE/APAP (5/325) TAB PO PRN ×2 (01:22→15:26)
[2019-04-17] MEDS: ACCU-CHEK XX SCH (02:00)
[2019-04-17] MEDS: SOD CHLORIDE 0.9% 1,000 ML IV SCH ×4 (02:32→22:39)
[2019-04-17 02:35] VITALS: BP 135/80; PULSE 78; RESP 18
[2019-04-17] MEDS: LEVOFLOXACIN 750 MG TABLET PO SCH (05:34)
[2019-04-17] MEDS: HEPARIN 5,000 UNIT/1 ML VIAL SC SCH ×3 (05:36→21:00)
[2019-04-17 07:17] VITALS: BP 117/78; PULSE 82; RESP 20
[2019-04-17] MEDS: LACTOBACILLUS RHAMNOSUS CAP PO SCH ×2 (08:35→20:55)
[2019-04-17] MEDS: INSULIN ASPART [NOVOLOG] 3 ML PEN SC SCH ×7 (08:39→21:00)
[2019-04-17] MEDS: INSULIN GLARGINE [LANTus] (100 UNITS/ML) SYG SC SCH ×2 (08:40→20:59)
[2019-04-17] MEDS: ONDANSETRON 4 MG INJ IV PRN (08:58)
--- NOTE | 2019-04-17 14:47 | PN ---
Date/Time of Note Date/Time of Note DATE: 04/17/19 TIME: 14:41 Assessment/Plan VTE Prophylaxis Risk score (from Nsg)>0 risk: 1 SCD applied (from Nsg): Yes Pharmacological prophylaxis: NA/contraindicated Pharm contraindication: low risk/ambulating Lines/Catheters IV Catheter Type (from Nrsg): Peripheral IV Urinary Cath still in place: No Assessment/Plan Assessment/Plan This is a 23-year-old [place] woman with history of type I diabetes admitted w [facility] acute pyelonephritis. #1 pyelonephritis: - fluid hydration with normal saline, - Levaquin 750 mg every 24 hours. - Opioid analgesics for pain control. - Urine culture growing E Coli, sensitive to nitrofurantoin, ciprofloxacin, Bactrim. Blood cultures NGTD. Micro lab at [place] is [phone] - Plan for discharge to finish a course of levofloxacin. #2 diabetes mellitus type 1: - Adjust insulin as needed. #3 DVT GI prophylaxis: SCDs, no GI prophylaxis indicated Result Diagram: 04/17/19 0436 04/17/19 0436 Subjective 24 Hr Interval Summary Free Text/Dictation Patient had nausea and vomited this morning. Pain significantly improved. She is apprehensive about going home. Requests to stay one more day. Exam/Review of Systems Exam Vitals Vital Signs Date Temp Pulse Resp B/P (MAP) Pulse Ox O2 O2 Flow FiO2 Time Delivery Rate 04/17/19 98.1 82 20 117/78 98 Room Air 07:17 (91) Intake and Output 04/16/19 04/16/19 04/17/19 1515:00 23:00 07:00 IntakeIntake Total 490 ml 1300 ml 1500 ml BalanceBalance 490 ml 1300 ml 1500 ml Exam General: Patient is a young woman currently lying in bed in no acute distress. HEENT: Atraumatic, normocephalic. The pupils are equal, round and reactive. Extraocular motor are intact Neck: Supple with full range of motion. No rigidity or meningismus Chest: Nontender Lungs: Clear to auscultation bilaterally no crackles rales or wheezing Heart: Normal S1-S2, Regular rhythm and rate. No murmur, S3, or S4 Abdomen: Mild LUQ abdominal tenderness. Normoactive bowel sounds. Soft, nondistended. Extremities: Normal to inspection, no edema no cyanosis Results Results 24hrs Laboratory Tests Test 04/16/19 17:41 04/16/19 20:36 04/16/19 21:03 04/17/19 04:36 Bedside Glucose 102 66 L 125 White Blood Count 9.3 Red Blood Count 3.79 L Hemoglobin 10.6 L Hematocrit 32.8 L Mean Corpuscular 86.5 Volume Mean Corpuscular 28.0 L Hemoglobin Mean Corpuscular 32.3 Hemoglobin Concent Red Cell 11.9 Distribution Width Platelet Count 339 Mean Platelet Volume 9.5 Immature 0.400 Granulocytes % Neutrophils % 53.4 Lymphocytes % 36.0 Monocytes % 7.2 Eosinophils % 2.6 Basophils % 0.4 Nucleated Red Blood 0.0 Cells % Immature 0.040 H Granulocytes # Neutrophils # 4.9 Lymphocytes # 3.3 H Monocytes # 0.7 Eosinophils # 0.2 Basophils # 0.0 Nucleated Red Blood 0.0 Cells # Sodium Level 139 Potassium Level 3.9 Chloride Level 112 H Carbon Dioxide Level 19 L Anion Gap 8 Blood Urea Nitrogen 12 Creatinine 0.80 Est Glomerular > 60 Filtrat Rate mL/min Glucose Level 198 # Calcium Level 8.6 Total Bilirubin 0.2 Direct Bilirubin 0.00 Indirect Bilirubin 0.2 Aspartate Amino 26 Transf (AST/SGOT) Alanine 21 Aminotransferase (AL T/SGPT) Alkaline Phosphatase 94 Total Protein 6.6 Albumin 3.2 L Globulin 3.40 H Albumin/Globulin 0.94 Ratio Test 04/17/19 08:26 04/17/19 12:23 04/17/19 14:23 Bedside Glucose 247 H 84 54 L Medications Medication Current Medications IV Flush (NS 3 ml) 3 ml PER PROTOCOL IV Last administered on 04/14/19at 03:47; Admin Dose 3 ML; Start 04/14/19 at 03:30 Acetaminophen (Tylenol Tab) 650 mg Q6H PRN PO .PAIN 1-3 OR TEMP; Start 04/14/19 at 03:30 Docusate Sodium (Colace) 100 mg Q12H PRN PO .CONSTIPATION; Start 04/14/19 at 03:30 Bisacodyl (Dulcolax) 5 mg DAILY PRN PO .CONSTIPATION; Start 04/14/19 at 03:30 Heparin Sodium (Porcine) (Heparin (5000 Units/1ml)) 5,000 unit Q8 SC Last administered on 04/17/19at 05:36; Admin Dose 5,000 UNIT; Start 04/14/19 at 06:00 Lactobacillus Acidophilus/ Rhamnosus (Culturelle) 1 cap BID PO Last administe red on 04/17/19at 08:35; Admin Dose 1 CAP; Start 04/14/19 at 09:00 Diagnostic Test (Pha) (Accu-Chek) 1 ea 02 XX ; Start 04/15/19 at 02:00 Miscellaneous Information 1 ea NOTE XX ; Start 04/14/19 at 04:00 Glucose (Glutose) 15 gm Q15M PRN PO DECREASED GLUCOSE; Start 04/14/19 at 04:00 Glucose (Glutose) 22.5 gm Q15M PRN PO DECREASED GLUCOSE; Start 04/14/19 at 04:00 Dextrose (D50w Syringe) 25 ml Q15M PRN IV DECREASED GLUCOSE; Start 04/14/19 at 04:00 Dextrose (D50w Syringe) 50 ml Q15M PRN IV DECREASED GLUCOSE; Start 04/14/19 at 04:00 Glucagon (Glucagen) 1 mg Q15M PRN IM DECREASED GLUCOSE; Start 04/14/19 at 04:00 Glucose (Glutose) 15 gm Q15M PRN BUCCAL DECREASED GLUCOSE; Start 04/14/19 at 04:00 Acetaminophen/ Hydrocodone Bitart ([place] (5/325)) 1 tab Q4H PRN PO MODERATE PAIN LEVEL 4-6 Last administered on 04/17/19at 01:22; Admin Dose 1 TAB; Start 04/14/19 at 11:00 Hydromorphone HCl (Dilaudid) 1 mg Q3H PRN IV BREAKTHROUGH PAIN Last administered on 04/15/19at 11:30; Admin Dose 1 MG; Start 04/14/19 at 11:00 Insulin Aspart (Novolog Insulin Pen) NOVOLOG *MODERATE* ALGORITHM WITH MEALS BEDTIME SC Last administered on 04/17/19at 08:39; Admin Dose 6 UNIT; Start 04/14/19 at 17:55 Ondansetron HCl (Zofran Inj) 4 mg Q4H PRN IV NAUSEA AND/OR VOMITING Last administered on 04/17/19at 08:58; Admin Dose 4 MG; Start 04/15/19 at 04:30 Sodium Chloride 1,000 ml @ 100 mls/hr Q10H IV Last administered on 04/17/19at 12:19; Admin Dose 100 MLS/HR; Start 04/15/19 at 10:00 Insulin Glargine (Lantus) 10 units BID SC Last administered on 04/17/19at 08:40; Admin Dose 10 UNITS; Start 04/16/19 at 09:00 Insulin Aspart (Novolog Insulin Pen) 6 unit WITH MEALS SC Last administered on 04/17/19at 12:42; Admin Dose 6 UNIT; Start 04/16/19 at 17:30 Levofloxacin (Levaquin) 750 mg DAILY@06 PO Last administered on 04/17/19at 05:34; Admin Dose 750 MG; Start 04/17/19 at 06:00 PATRICIA SHERWOOD MD Apr 17, 2019 14:47
[2019-04-17 16:02] VITALS: BP 121/68; PULSE 72; RESP 19
[2019-04-17 19:25] VITALS: BP 119/61; PULSE 87; RESP 18
[2019-04-18] MEDS: ACCU-CHEK XX SCH (02:00)
[2019-04-18 02:35] VITALS: BP 112/66; PULSE 82; RESP 18
[2019-04-18] MEDS: LEVOFLOXACIN 750 MG TABLET PO SCH (05:39)
[2019-04-18] MEDS: HEPARIN 5,000 UNIT/1 ML VIAL SC SCH (05:50)
[2019-04-18 07:50] VITALS: BP 128/74; PULSE 79; RESP 18
[2019-04-18] MEDS: INSULIN ASPART [NOVOLOG] 3 ML PEN SC SCH ×4 (09:12→11:36)
[2019-04-18] MEDS: LACTOBACILLUS RHAMNOSUS CAP PO SCH (09:19)
[2019-04-18] MEDS: SOD CHLORIDE 0.9% 1,000 ML IV SCH (09:19)
[2019-04-18] MEDS: INSULIN GLARGINE [LANTus] (100 UNITS/ML) SYG SC SCH (09:19)
[2019-04-18] MEDS: HYDROCODONE/APAP (5/325) TAB PO PRN (09:20)
--- NOTE | 2019-04-18 09:32 | PDOCDIS ---
Discharge Instructions CONDITION [id number] Patient Condition: [id number] Good HOME CARE INSTRUCTIONS: [id number] Special Diet: [id number] DIABETIC MALINA ENRIQUEZ Apr 18, 2019 09:32
--- NOTE | 2019-04-18 12:26 | DS ---
Date/Time of Note Date/Time of Note DATE: 04/18/19 TIME: 12:23 Discharge Summary Admission/Discharge Info Admit Date/Time Apr 14, 2019 at 02:15 Discharge Date/Time April 18, 2019 Discharge Diagnosis This is a 23-year-old [place] woman with history of type I diabetes admitted with sepsis from UTI #1 Sepsis secondary to UTI-resolved -Status post course of antibiotics and fluids, patient completed 5-day course of antibiotics - Urine culture growing E Coli, sensitive to nitrofurantoin, ciprofloxacin, Bactrim. Blood cultures NGTD. Micro lab at [place] is [phone] #2 diabetes mellitus type 1: -Continue home insulin Patient Condition: Good Hospital Course Patient is 23-year-old female with history of diabetes who presents with sepsis secondary to UTI. Urine culture from outside hospital grew E. coli, patient completed a course of antibiotics with resolution of sepsis. Patient stable for DC, on the day of discharge patient vitals, labs and physical exam are stable. Home Meds Active Scripts Lactobacillus Acidophilus* (Lactinex*) 1 Tab Chew, 1 TAB PO BID, #60 TAB Prov:BILLIE HASSAN NP 04/12/18 Metronidazole* (Flagyl*) 500 Mg Tablet, 500 MG PO BID, #14 TAB Prov:BILLIE HASSAN NP 04/12/18 Levofloxacin* (Levofloxacin*) 500 Mg Tablet, 500 MG PO DAILY, #14 TAB Prov:BILLIE HASSAN NP 04/12/18 [Insulin Glargine] 100 UNITS/ML SOLN No Conflict Check, 15 UNITS SC DAILY@2000 for 30 Days Prov:BILLIE HASSAN NP 04/12/18 Insulin Aspart* (Novolog Insulin Pen*) 100 Unit/Ml Soln, 7 UNIT SC WITH MEALS for 30 Days Prov:BILLIE HASSAN NP 04/12/18 Follow-up Plan FOLLOW UP WITH YOUR PRIMARY CARE PHYSICIAN IN 1-2 WEEKS Primary Care Provider Not On Staff Doctor Time spent on discharge: > 30 minutes MALINA ENRIQUEZ Apr 18, 2019 12:26
== END 2019-04-18 13:00 | disposition home or self-care (01) | DRG 690 ==
LOC: MS1 02:15
PROVIDERS: ADMIT Family Medicine; ATTEND Internal Medicine
DX: N10 Acute pyelonephritis (principal); E10.65 Type 1 diabetes mellitus with hyperglycemia; B96.20 Unspecified Escherichia coli [E. coli] as the cause of diseases classified elsewhere; Z79.4 Long term (current) use of insulin
CPT/HCPCS: 80053; 80061; 81001; 82947; 82962; 83036; 83735; 84443; 85025; 86592; 86703; 87086; 87591; J0696; J1170; J1644; J1815; J1885; J1956; J2405; J7030